=== PATIENT | female | born 1970 | race Caucasian/White ===

== ENCOUNTER 2023-05-28 08:24 | Outpatient (CLI) | payer OTHER | END 2023-05-28 08:25 | disposition home or self-care (01) | LOC: BICMAMMO 08:24 | PROVIDERS: ATTEND Nurse Practitioner Family | DX: N63.20 Unspecified lump in the left breast, unspecified quadrant (principal); N63.10 Unspecified lump in the right breast, unspecified quadrant; D24.1 Benign neoplasm of right breast | CPT/HCPCS: 76642; 77066; G0279 ==